=== PATIENT | female | born 1980 | race Caucasian/White ===

== ENCOUNTER 2016-09-09 18:35 | Emergency (ER) | payer OTHER ==
[~2016-09-09] VITALS: Ht 157.5 cm; Wt 74.2 kg
[~2016-09-09 18:35] MED LIST: ALBUTEROL17 GM IH; AMOXICILLIN500 M1 PO; ANIMAL CHEWS1 EACH PO; AUGMENTIN875 MG PO; BUSPAR5 MG PO; CLARITIN10 M3 PO; CLINDAMYCIN HC300 MG PO; CLONAZEPAM1 MG; CLONAZEPAM1 MG PO; COLACE100 MG PO; DICLEGIS DR 101 EACH PO; ENDOCET 5-3251 EACH; ENDOCET 5-3251 EACH PO; FERROUS SULFAT325 MG PO; FIORICET 50-301 EACH PO; FLEXERIL10 MG PO; HYDROCODON-ACE1 EAC7 PO; IBUPROFEN800 MG PO; INDOCIN50 MG PO; KEFLEX500 MG PO; KLONOPIN0.5 M1 PO; METHOCARBAMOL500 MG PO; NAPROSYN375 MG PO; NAPROSYN500 MG PO; NORCO 5/3251 TABLET PO; PERCOCET 5/31 TABLET PO; PREDNISONE20 MG PO; PRENATAL TABLE1 EAC3 PO; PROCARDIA10 MG PO; SERTRALINE HCL100 MG PO; TORADOL10 MG PO; ULTRAM50 MG PO; VENTOLIN HFA18 GM IH; ZOFRAN ODT4 MG PO; ZOLOFT100 MG PO; ZOLOFT25 MG PO; ZOLOFT50 MG PO; ZOLPIDEM TARTRAT5 MG
[2016-09-09 21:02] LABS: HEMATOCRIT 35.7 % (36.0-46.0); MCH 28.5 PG (29.0-34.0); MCHC 31.7 G/DL (30.0-36.0); MCV 90.2 FL (83-99); MEAN PLAT.VOLUME 9.3 uM^3 (9.5-12.4); PLATELET COUNT 263 K/uL (156-360); RBC DIS.WIDTH-CV 15.8 % (11.8-14.6); RBC DIS.WIDTH-SD 51.3 % (39-53); RED BLOOD COUNT 3.96 M/uL (3.80-5.20); WHITE BLOOD COUNT 8.2 K/uL (4.1-10.2)
[2016-09-09 21:13] LABS: CHLORIDE 108 mEq/L (99-109); POTASSIUM 4.4 mEq/L (3.7-5.4); SODIUM 138 mEq/L (136-147)
[2016-09-09 21:14] LABS: GLUCOSE 85 mg/dL (70-99)
[2016-09-09 21:15] LABS: ADD MIUA? YES; BILIRUBIN NEGATIVE; BLOOD LARGE; COLOR YELLOW ((YELLOW)); GLUCOSE (STRIP) NEGATIVE; KETONES NEGATIVE; LEUKOCYTES MODERATE; NITRITE NEGATIVE; PROTEIN (STRIP) NEGATIVE; SPECIFIC GRAVITY 1.019 (1.000-1.030); UROBILINOGEN 0.2 MG/DL (0.2-1.0)
[2016-09-09 21:16] LABS: ANION GAP 9 MEQ/L (2-14)
[2016-09-09 21:18] LABS: GFR ESTIMATE (CALCULATED) > 59 mL/min/
[2016-09-09 21:19] LABS: UREA NITROGEN (BUN) 12 mg/dL (9-23)
[2016-09-09 21:28] LABS: QUANTITATIVE HCG < 4.0 MIU/ML
[2016-09-09 21:31] LABS: EPITHELIAL CELLS 1+; MUCUS 1+
[2016-09-09 21:32] LABS: BACTERIA 2+; CASTS NONE SEEN /LPF; CRYSTALS NONE SEEN; UCUL ADDED? YES
[2016-09-09] MEDS ORDERED: PERCOCET 10/1 TABLET PO (22:34)
[2016-09-09 22:46] VITALS: BP 134/88
== END 2016-09-09 22:46 | disposition home or self-care (01) ==
LOC: EME 18:35
PROVIDERS: Physician Assistant
DX: N83.201 Unspecified ovarian cyst, right side (principal); G89.18 Other acute postprocedural pain; F17.200 Nicotine dependence, unspecified, uncomplicated; Z91.040 Latex allergy status
CPT/HCPCS: 74177; 80048; 81003; 84702; 85027; 87086; 99281; 99284; J1885

== ENCOUNTER 2016-09-21 14:54 | Emergency (ER) | payer OTHER ==
[~2016-09-21] VITALS: Ht 157.5 cm; Wt 74.0 kg
[~2016-09-21 14:54] MED LIST changes: +PERCOCET 10/1 TABLET PO
[2016-09-21 15:32] LABS: HEMATOCRIT 37.7 % (36.0-46.0); MCH 28.6 PG (29.0-34.0); MCHC 32.4 G/DL (30.0-36.0); MCV 88.5 FL (83-99); RBC DIS.WIDTH-CV 15.9 % (11.8-14.6); RBC DIS.WIDTH-SD 51.2 % (39-53); RED BLOOD COUNT 4.26 M/uL (3.80-5.20); WHITE BLOOD COUNT 10.4 K/uL (4.1-10.2)
[2016-09-21 15:43] LABS: CHLORIDE 110 mEq/L (99-109); MEAN PLAT.VOLUME 9.4 uM^3 (9.5-12.4); POTASSIUM 3.9 mEq/L (3.7-5.4); SODIUM 141 mEq/L (136-147)
[2016-09-21 15:45] LABS: GLUCOSE 132 mg/dL (70-99)
[2016-09-21 15:47] LABS: ANION GAP 11 MEQ/L (2-14); TOTAL BILIRUBIN 0.3 mg/dL (0.0-1.0)
[2016-09-21 15:49] LABS: ALKALINE PHOSPHATASE 66 IU/L (3-129); GFR ESTIMATE (CALCULATED) > 59 mL/min/
[2016-09-21 15:50] LABS: UREA NITROGEN (BUN) 11 mg/dL (9-23)
[2016-09-21 16:00] LABS: QUANTITATIVE HCG < 4.0 MIU/ML
[2016-09-21 16:01] LABS: PLATELET COUNT 385 K/uL (156-360)
[2016-09-21 16:14] LABS: ADD MIUA? YES; BILIRUBIN NEGATIVE; BLOOD NEGATIVE; COLOR YELLOW ((YELLOW)); GLUCOSE (STRIP) NEGATIVE; KETONES NEGATIVE; LEUKOCYTES MODERATE; NITRITE NEGATIVE; PH, URINE 6.5 (5-8); PROTEIN (STRIP) NEGATIVE; SPECIFIC GRAVITY 1.022 (1.000-1.030); UROBILINOGEN 0.2 MG/DL (0.2-1.0)
[2016-09-21 16:35] LABS: BACTERIA 2+; CASTS NONE SEEN /LPF; CRYSTALS NONE SEEN; EPITHELIAL CELLS 2+; MUCUS NONE SEEN; RED BLOOD CELLS NONE SEEN /HPF (0-5); UCUL ADDED? YES
[2016-09-21] MEDS ORDERED: INDOCIN25 MG PO (17:26)
[2016-09-21 17:29] VITALS: BP 145/61
[2016-09-22] MEDS ORDERED: PERCOCET 5/31 TABLET PO (03:41)
[2016-09-22] MEDS ORDERED: ZOFRAN ODT4 MG PO (03:41)
[2016-09-22] MEDS ORDERED: KEFLEX500 MG PO (03:44)
== END 2016-09-21 17:39 | disposition home or self-care (01) ==
LOC: EME 14:54 → RME 14:54
DX: N83.201 Unspecified ovarian cyst, right side (principal); G89.18 Other acute postprocedural pain; R10.9 Unspecified abdominal pain; J06.9 Acute upper respiratory infection, unspecified; J45.909 Unspecified asthma, uncomplicated; K21.9 Gastro-esophageal reflux disease without esophagitis; F17.200 Nicotine dependence, unspecified, uncomplicated
CPT/HCPCS: 80053; 81003; 84702; 85027; 87086; 99281; 99284

== ENCOUNTER 2016-09-21 23:29 | Emergency (ER) | payer OTHER ==
[~2016-09-21] VITALS: Ht 157.5 cm; Wt 74.2 kg
[~2016-09-21 23:29] MED LIST changes: +INDOCIN25 MG PO
[2016-09-22 00:20] LABS: EOSINOPHIL (%) 0.1 % (0-5); HEMATOCRIT 36.1 % (36.0-46.0); IMMATURE GRANULOCYTE (%) 0.2 % (0.0-0.7); IMMATURE GRANULOCYTE COUNT 0.2 K/uL; LYMPHOCYTE COUNT 2.3 K/uL (1.0-2.8); MCHC 32.4 G/DL (30.0-36.0); MCV 89.4 FL (83-99); MEAN PLAT.VOLUME 9.3 uM^3 (9.5-12.4); MONOCYTE (%) 5.9 % (3-12); MONOCYTE COUNT 0.6 K/uL (0-0.8); NEUTROPHIL (%) 71.5 % (45-76); NEUTROPHIL COUNT 7.3 K/uL (1.8-6.4); PLATELET COUNT 362 K/uL (156-360); RBC DIS.WIDTH-SD 51.4 % (39-53); RED BLOOD COUNT 4.04 M/uL (3.80-5.20); WHITE BLOOD COUNT 10.3 K/uL (4.1-10.2)
[2016-09-22 00:29] LABS: CHLORIDE 110 mEq/L (99-109); POTASSIUM 3.3 mEq/L (3.7-5.4); SODIUM 140 mEq/L (136-147)
[2016-09-22 00:32] LABS: GLUCOSE 118 mg/dL (70-99)
[2016-09-22 00:33] LABS: ANION GAP 10 MEQ/L (2-14)
[2016-09-22 00:34] LABS: TOTAL BILIRUBIN 0.3 mg/dL (0.0-1.0)
[2016-09-22 00:35] LABS: ALKALINE PHOSPHATASE 63 IU/L (3-129); GFR ESTIMATE (CALCULATED) > 59 mL/min/
[2016-09-22 00:36] LABS: UREA NITROGEN (BUN) 13 mg/dL (9-23)
[2016-09-22 00:46] LABS: QUANTITATIVE HCG < 4.0 MIU/ML
[2016-09-22] MEDS ORDERED: PERCOCET 5/31 TABLET PO (03:41)
[2016-09-22] MEDS ORDERED: ZOFRAN ODT4 MG PO (03:41)
[2016-09-22] MEDS ORDERED: KEFLEX500 MG PO (03:44)
[2016-09-22 03:48] VITALS: BP 144/94
[2016-09-23 13:27] LABS: CHLAMYDIA TRACHOMATIS NEGATIVE; NEISSERIA GONORRHOEAE NEGATIVE
== END 2016-09-22 04:34 | disposition home or self-care (01) ==
LOC: EME 23:29
PROVIDERS: Emergency Medicine
DX: R10.31 Right lower quadrant pain (principal); N39.0 Urinary tract infection, site not specified; R19.7 Diarrhea, unspecified; G89.29 Other chronic pain; F17.200 Nicotine dependence, unspecified, uncomplicated
CPT/HCPCS: 74177; 80053; 84702; 85025; 87210; 87491; 87591; 99281; 99284; J0696; J3010; J7030; J7050

== ENCOUNTER 2016-12-01 20:22 | Emergency (ER) | payer OTHER ==
[~2016-12-01] VITALS: Ht 157.5 cm; Wt 75.9 kg
[2016-12-01] MEDS ORDERED: PERCOCET 5/31 TABLET PO (22:09)
[2016-12-01 22:40] VITALS: BP 138/79
== END 2016-12-01 23:02 | disposition home or self-care (01) ==
LOC: EME 20:22
PROC: 3E0T3BZ Introduction of Anesthetic Agent into Peripheral Nerves and Plexi, Percutaneous Approach (ICD-10-PCS; principal; 2016-12-01)
DX: M27.3 Alveolitis of jaws (principal); K08.89 Other specified disorders of teeth and supporting structures; Z98.818 Other dental procedure status; F17.200 Nicotine dependence, unspecified, uncomplicated
CPT/HCPCS: 99281; 99284

== ENCOUNTER 2018-04-06 19:40 | Emergency (ER) | payer OTHER ==
[~2018-04-06] VITALS: Ht 157.5 cm; Wt 68.3 kg
[2018-04-06] MEDS ORDERED: INDOCIN50 MG PO (20:49)
[2018-04-06] MEDS ORDERED: ZOLOFT100 MG PO (20:49)
[2018-04-06 21:23] VITALS: BP 128/92
== END 2018-04-06 21:25 | disposition home or self-care (01) ==
LOC: EME 19:40
DX: Z76.0 Encounter for issue of repeat prescription (principal); M25.561 Pain in right knee; G89.29 Other chronic pain; Z91.040 Latex allergy status
CPT/HCPCS: 99281; 99284